=== PATIENT | male | born 1995 | race Caucasian/White ===

== ENCOUNTER 2018-02-16 02:45 | Emergency (ER) | payer OTHER ==
[~2018-02-16] VITALS: Ht 175.3 cm; Wt 76.4 kg
[2018-02-16 02:51] VITALS: TEMP 36.8; Ht 175.3 cm; Wt 76.4 kg
[2018-02-16] MEDS ORDERED: LIDOCAINE/EPINEPH/TETRACAINE 1 EA SYR ONE (02:57)
--- NOTE | 2018-02-16 04:37 | EMERGENCY ROOM VISIT NOTE ---
History First contact with patient: 02:50 Chief Complaint: LACERATION/CUT (SUT/DERMABOND) Stated Complaint: NOSE LACERATION Nursing Triage Summary: intoxicated, fell and hit nose on sidewalk, reports minor pain, denies other injuries, intoxicated, no drugs History of Present Illness The patient is a 22 year old male who presents to the Emergency Room with complaints of nasal injury and laceration who tripped and fell on his way home from the bar. Patient is intoxicated. Patient complains of nasal pain. Pain minimal, 2 out of 10. Nothing makes it better or worse. Described as aching. He denies loss conscious, headache, neck pain, chest pain, dyspnea, abdominal pain, back pain, numbness, tingling, dental pain or any other medical complaints. He is intoxicated though. No blood thinners. No drug use. Tetanus is current. Review of Systems An 10 system review of systems was completed with positives and pertinent negatives listed in the HPI. Past Medical/Surgical History none Social History Smoking Status: Never Smoker Alcohol Use: occasionally Drug Use: none Marital Status: single Occupation Status: [employer] student Current/Historical Medications No Active Prescriptions or Reported Meds Physical Exam Vital Signs Date Time Temp Pulse Resp B/P (MAP) Pulse Ox O2 Delivery O2 Flow Rate FiO2 02/16/18 02:51 36.8 95 18 145/78 96 Room Air Physical Exam PHYSICAL EXAM: VITALS: Vitals are noted on the nurse's note and reviewed by myself. Vital signs stable. GENERAL: Pleasant male with EtOH odor, in no acute distress, nondiaphoretic, well-developed well-nourished. SKIN: 2 cm stellate laceration to the nasal bridge with contusion present and soft tissue swelling. the rest of the skin was without obvious lacerations or abrasions. Capillary reflex less than 2 seconds. HEAD: Normocephalic atraumatic. EARS: External auditory canals clear, tympanic membranes pearly vargas without erythema or effusion bilaterally. No hemotympanums. No rod sign. No mastoid tenderness. EYES: Pupils equal round and reactive to light and accommodation. Conjunctivae with injection, sclerae without icterus. Extraocular movements intact. NOSE: Patent, turbinates without inflammation or discharge. No sinus tenderness. No septal hematoma or bleeding from the naris.2 cm stellate laceration to the nasal bridge with contusion present and soft tissue swelling. FACE: Nasal wharf tender helper to palpation and no other facial bone tenderness. Full range of motion of the jaw without tenderness. Dental exam: No loose or chipped teeth. Patient can fully open and close mouth without difficulties. MOUTH: Mucous membranes moist. Pharynx without erythema or exudate. Uvula midline. Airway patent. Tongue does not deviate. NECK: Supple without nuchal rigidity. Cervical spine is nontender. Full range of motion of the neck without tenderness. No JVD. HEART: Regular rate and rhythm without murmurs gallops or rubs. LUNGS: Clear to auscultation bilaterally without wheezes, rales or rhonchi. No dullness to percussion. No retractions or accessory muscle use. No chest wall tenderness. ABDOMEN: Positive bowel sounds x 4. Normal tympanic percussion. Soft, nontender, without masses or organomegaly. No guarding or rebound tenderness. MUSCULOSKELETAL: No tenderness of the thoracic or lumbar spine. No tenderness with pelvic rocking. Full range of motion without tenderness to palpation in all extremities. Normal gait. Strength 5/5 throughout. NEURO: Patient was alert and oriented to person place and time. Normal Mini- Mental status exam. Normal sensation to light and sharp touch. Negative Romberg and pronator drift. Cerebellar function intact. No focal neurological deficits. Medical Decision & Procedures Medications Administered Medications (Trade) Dose Ordered Sig/Kamar Route Start Time Stop Time Status Last Admin Dose Admin Tetracaine/ Epinephrine/ Lidocaine (L.e.t. Gel 4%/ 1:100/0.5%) 1 ea STK-MED ONCE .ROUTE 02/16/18 02:57 02/16/18 02:58 DC 02/16/18 03:01 1 EA Procedure Location: Nasal bridge Total length: 2cm, stellate Complexity: Simple Verbal consent was obtained after the risks and benefits were explained, including but not limited to bleeding, scarring, infection, pain, and bone/joint /nerve damage. At this time, the risks of the procedure are less than the risks of NOT performing the procedure. A time out was taken and the correct patient and site identified. The skin was prepped with betadine. The target area was anesthetized with LET. Copious irrigation was performed using NSS. The skin was re-prepped with betadine and a sterile field set. The wound was explored for foreign bodies and none found. Examination revealed no injury to deep structures such as tendons, bone, or significant blood vessels. Debridement was not performed. The wound edges were approximated using 6, 5-0 simple interrupted nylon sutures. Hemostasis and excellent approximation was achieved. Antibacterial ointment and a sterile dressing applied. Detailed wound care instructions and signs and symptoms of infection reviewed with the pt. No complications and the patient tolerated the procedure well. ED Course Prior records/ancillary studies reviewed. Triage Nursing notes reviewed. Additional history obtained from EMS. The patient's history was concerning for traumatic head injury Differential diagnosis: Etiologies such as concussion, contusion, fracture, subdural hematoma, epidural hematoma, intraparenchymal hemorrhage, as well as other traumatic pathologies were entertained. Physical examination findings: As above. ER treatment provided: Laceration repaired as above On reassessment the patient felt better. Diagnostics interpreted by me: Imaging studies: CT HEAD: Impression: No intracranial hemorrhage or other acute intracranial abnormality. No mass lesion or mass effect. Ventricles normal in size and configuration. The skull base and calvarium appear normal. CT FACIAL: Impression: Minimally displaced bilateral nasal bone fractures with overlying soft tissue swelling. Mild to moderate mucosal thickening is seen in the ethmoid and maxillary sinuses. The mandible is intact. CT C SPINE: Impression: No fracture or traumatic malalignment of the cervical spine. No significant spinal canal stenosis or foraminal narrowing. Radiologist: Onofre Shelley MD Head injury evaluation: GCS <15 two hours after injury: no Suspected open or depressed skull fracture: no Any sign of basilar skull fracture: hemotympanum, raccoon eyes (intraorbital bruising), Rod sign (retroauricular bruising), or cerebrospinal fluid leak, olga- or rhinorrhea: no Two or more episodes of vomiting: no Sixty-five years of age or older: no Amnesia for events occurring more than 30 minutes prior to impact: no Dangerous mechanism (pedestrian struck by motor vehicle, occupant ejected from motor vehicle, fall from =3 feet or =5 stairs): no Neurologic deficit: no Seizure: no Presence of bleeding diathesis or oral anticoagulant use: no Return visit for reassessment of a head injury: no Total:(any yes, then CT) 0 but patient is intoxicated so imaging was ordered It appears the patient has a head injury with facial injury and nasal fracture with laceration concerning for open fracture. Patient is intoxicated so imaging was ordered. Laceration was repaired as above. Patient was neurovascularly and neurologically intact. He was well-appearing. He is ambulating without difficulties. He was started on antibiotics advised to follow-up with ENT for nasal bone fracture in a few days. He was counseled on head injury signs and symptoms and on laceration care and alcohol intoxication. He is advised to follow-up with health services in a few days here in the ER sooner for headache, fevers, confusion, worsening signs or symptoms or as needed. By the evaluation outlined above emergent etiologies such as subdural hematoma , epidural hematoma, intraparenchymal hemorrhage, as well as others were deemed relatively unlikely. The pt informed about the findings as listed above. All questions were answered and pleased with the treatment. Return instructions were outlined and the patient was discharged in stable condition. Outpatient Prescription Management: Keflex Referral: The patient was referred back to their primary care physician/[facility] and ENT for follow-up in 2 to 3 days for a recheck of the current condition. Case reviewed with my attending The chart was completed utilizing [employer] Speech voice recognition software. Grammatical errors, random word insertions, pronoun errors, and incomplete sentences are an occassional consequence of this system due to software limitations, ambient noise, and hardware issues. Any formal questions or concerns about the content, text, or information contained within the body of this dictation should be directly addressed to the physician respiratory equipment assistant for clarification. Medical Decision As above Medication Reconcilliation Current Medication List: was personally reviewed by me Blood Pressure Screening Patient's blood pressure: Elevated blood pressure Blood pressure disposition: Elevated BP felt to be situational Impression Primary Impression: Facial laceration Additional Impressions: Head injury Open fracture nasal bone Departure Information Dispostion Home / Self-Care Condition GOOD Prescriptions No Active Prescriptions or Reported Meds Patient Instructions My [facility] Purchasing Platform Additional Instructions Nasal fracture and laceration: Cephalexin(Keflex) 500mg: Take one pill four times daily for 10 days. All antibiotics can cause diarrhea. If this occurs and you feel worse or it does not resolve in 1-2 days follow up with your doctor or return to the Emergency Department as this could be signs of serious underlying problems. Any medication can cause an allergic reaction, stop the pills immediately and return to the ER for rash, hives, breathing difficulties, or swelling. Recommend that you frequently ice down your nose for the next few days for 15 minutes several times throughout the day, not directly on the skin, for your broken nose. Return to the ER for severe pain, fevers, spreading redness, or any worsening of your condition. Follow up with ENT within 2-3 days for a recheck of the current condition. Call for an appointment. Alcohol intoxication: Keep well-hydrated. Follow up with family doctor and/or health services as needed. No driving for the next 24 hours. Recommend no alcohol for the next 48 hours and avoid binge drinking in the future. Return to ER sooner for chest pain, abdominal pain, worsening signs or symptoms or as needed. Head injury: Read head injury handout and return for any symptoms. Tylenol 1000 mg as needed for pain (Maximum 3000 mg Tylenol in 24 hr period). Avoid alcohol and contact sports/activities for one week and follow up with family doctor prior to returning to these activities if still symptomatic. Ice and elevate head. If your symptoms persist more than a week then follow up with the concussion clinic. Call [phone]. Return to ER sooner for headache, fevers, confusion, worsening signs or symptoms or as needed. Laceration: Keep wound clean and dry. Do not allow any crusting or dried blood to accumulate on sutures. If this occurs, use a 1:1 solution of hydrogen peroxide/ water on a Q-tip to clean the wound. Use an antibiotic ointment for 3-4 days, then let wound dry. Suture removal in 5-7 days. Return sooner for any signs of infection (increasing redness, swelling, drainage). Ice and elevate for swelling and pain. Keep covered when in sun until sutures removed then SPF 50 or higher for one year. Vitamin E oil if desired two weeks after suture removal for reduction of scar. Return to ER sooner for pain, fevers, confusion, worsening signs or symptoms or as needed. Problem Qualifiers Primary Impression: Facial laceration Encounter type: initial encounter Qualified Codes: S01.81XA - Laceration without foreign body of other part of head, initial encounter
[2018-02-16] MEDS ORDERED: CEPH500C2 PO (04:44)
[2018-02-16] MEDS ORDERED: CEPHALEXIN 500MG HOME PACK 1 EA BTL PO ONE (04:45)
[2018-02-16 04:51] VITALS: BP 116/58; PULSE 83; O2SAT 98
--- NOTE | 2018-02-16 07:03 | DIAGNOSTIC IMAGING REPORT ---
HEAD WITHOUT CONTRAST (CT) CLINICAL HISTORY: 22 years-old Male presenting with fall, facial injury, ETOH. TECHNIQUE: Multidetector CT imaging of the head was performed without the use of intravenous contrast. IV contrast: None. A dose lowering technique was used consistent with the principles of ALARA (as low as reasonably achievable). COMPARISON: None. CT DOSE (mGy.cm): The estimated cumulative dose is 1353.68 mGy.cm. FINDINGS: Supply Tech topogram: Unremarkable. Ventricles and sulci normal in size. Brain parenchyma normal in appearance with preserved vargas-white differentiation. No mass effect or midline shift. No hemorrhage or acute territorial infarct. No extra-axial fluid collection. Minimal mucosal thickening of the ethmoid air cells. The visualized portion of the nasal bones are intact. Calvarium intact. IMPRESSION: 1. No acute intracranial abnormality. Electronically signed by: Yrn Godwin M.D. 02/16/2018 7:01 AM Dictated Date/Time: 02/16/2018 6:52 AM
--- NOTE | 2018-02-16 07:09 | DIAGNOSTIC IMAGING REPORT ---
CERVICAL SPINE W/O CLINICAL HISTORY: 22 years-old Male presenting with fall, facial injury, ETOH. TECHNIQUE: Multidetector CT of the cervical spine was performed without the use of intravenous contrast. IV contrast: None. A dose lowering technique was used consistent with the principles of ALARA (as low as reasonably achievable). COMPARISON: None. CT DOSE (mGy.cm): The estimated cumulative dose is 1353.68. FINDINGS: Steel Inspector topogram: Unremarkable. Normal cervical lordosis. Vertebral bodies maintain normal height and alignment. Intervertebral disc heights preserved. No degenerative change. No acute fracture or subluxation. No osseous neural foraminal or spinal canal narrowing. Skull base intact. Paraspinal soft tissues within normal limits. Lung apices clear. IMPRESSION: No acute osseous injury of the cervical spine. Electronically signed by: Yrn Godwin M.D. 02/16/2018 7:08 AM Dictated Date/Time: 02/16/2018 7:05 AM
--- NOTE | 2018-02-16 07:14 | DIAGNOSTIC IMAGING REPORT ---
FACIAL BONES-MXILLOFAC WITHOUT CLINICAL HISTORY: 22 years-old Male presenting with fall, facial injury, ETOH. TECHNIQUE: Multidetector CT of the face was performed without the use of intravenous contrast. IV contrast: None. A dose lowering technique was used consistent with the principles of ALARA (as low as reasonably achievable). COMPARISON: None. CT DOSE (mGy.cm): The estimated cumulative dose is 1353.68. FINDINGS: [place] Tender topogram: Unremarkable. Extensive mucosal thickening in the bilateral maxillary sinuses and ethmoid air cells. Mildly displaced bilateral nasal bone fractures, which were not included within the [id number] on CT head. There is overlying soft tissue irregularity and swelling consistent with contusion and laceration. Bony nasal septum is intact. Orbital floors intact. Orbits normal. Mandible intact. Temporomandibular joints intact. Teeth intact. Skull base intact. Upper cervical spine normal. Remaining superficial soft tissues within normal limits. IMPRESSION: Bilateral minimally displaced nasal bone fractures with overlying contusion and/or laceration. Electronically signed by: Yrn Godwin M.D. 02/16/2018 7:13 AM Dictated Date/Time: 02/16/2018 7:09 AM
== END 2018-02-16 04:55 | disposition home or self-care (01) ==
LOC: EDBD 02:45 → C.EDA 02:47
DX: S02.2XXB Fracture of nasal bones, initial encounter for open fracture (principal); S09.90XA Unspecified injury of head, initial encounter; W01.0XXA Fall on same level from slipping, tripping and stumbling without subsequent striking against object, initial encounter